=== PATIENT | female | born 1960 | race Caucasian/White ===

== ENCOUNTER → 2023-03-22 15:22 | Outpatient (REF) | payer BC, SELFPAY | LOC: WDC 15:22 | PROVIDERS: ATTENDING PHYSICIAN Internal Medicine | DX: Z12.31 Encounter for screening mammogram for malignant neoplasm of breast (principal) | CPT/HCPCS: 77063; 77067 ==

== ENCOUNTER → 2023-09-05 16:28 | Outpatient (REF) | payer BC, SELFPAY | LOC: CPAP 16:28 | PROVIDERS: ATTENDING PHYSICIAN Nurse Practitioner Family | DX: Z01.419 Encounter for gynecological examination (general) (routine) without abnormal findings (principal); Z11.51 Encounter for screening for human papillomavirus (HPV) | CPT/HCPCS: 87624; G0123 ==

== ENCOUNTER → 2023-09-18 13:12 | Outpatient (REF) | payer BC, SELFPAY | LOC: PAVMRI 13:12 | PROVIDERS: ATTENDING PHYSICIAN Orthopaedic Surgery; FAMILY PHYSICIAN Internal Medicine | DX: M25.559 Pain in unspecified hip (principal) | CPT/HCPCS: 73721 ==

== ENCOUNTER → 2023-09-20 07:11 | Outpatient (REF) | payer BC, SELFPAY ==
[2023-09-20 08:15] LABS: % Basophils 0.6 % (0-2); % Eosinophils 4.7 % (0-6); % Immature Granulocytes 0.4 % (0-0.5); % Lymphocytes 31.5 % (20.5-51.1); % Monocytes 11.7 % (1.7-9.3); % Neutrophils 51.1 % (42.2-75.2); Absolute Eosinophils 0.2 10^3/uL (0-0.7); Absolute Lymphocytes 1.6 10^3/uL (1.2-3.4); Absolute Monocytes 0.6 10^3/uL (0.1-0.6); Absolute Neutrophils 2.6 10^3/uL (1.4-6.5); Hematocrit 33.7 % (37.0-47.0); Hemoglobin 10.9 g/dL (12.0-16.0); Mean Corp Hgb Conc. 32.3 g/dL (33.0-37.0); Mean Corpuscular Hgb 25.8 pg (27.0-31.0); Mean Corpuscular Volume 79.9 fL (81.0-99.0); Mean Platelet Volume 10.1 fL (7.4-10.4); Nucleated Red Blood Cells % 0 %; Platelet Count 281 10^3/uL (130-400); Red Blood Cell Count 4.22 10^6/uL (4.20-5.40); Red Cell Dist. Width 14.3 % (11.5-14.5); White Blood Cell Count 5.2 10^3/uL (4.8-10.8)
[2023-09-20 09:01] LABS: ALT (SGPT) 16 U/L (0-35); AST (SGOT) 22 U/L (14-36); Albumin 4.1 g/dl (3.5-5.0); Alkaline Phosphatase 65 U/L (38-126); Blood Urea Nitrogen 18 mg/dl (7-17); Calcium 9.2 mg/dl (8.4-10.2); Carbon Dioxide 28 mmol/L (22-30); Chloride 107 mmol/L (98-107); Glucose 91 mg/dl (70-99); HDL Cholesterol 79 mg/dl; LDL Cholesterol, Calculated 127 mg/dl; Potassium 4.5 mmol/L (3.5-5.1); Sodium 138 mmol/L (135-145); Total Bilirubin 0.6 mg/dl (0.2-1.3); Total Cholesterol 218 mg/dl (50-199); Total Protein 6.7 g/dl (6.3-8.2); Triglyceride 60 mg/dl (10-149); Very Low Density Lipoprotein 12 mg/dl (0-30); eGFR > 60.00
[2023-09-20 09:19] LABS: TSH 2.47 uIU/ml (0.47-4.68)
[2023-09-20 09:45] LABS: Glycohemoglobin (HgbA1c) 5.7 % (4.0-5.6)
== END ==
LOC: REG 07:11
PROVIDERS: ATTENDING PHYSICIAN Internal Medicine
DX: I10 Essential (primary) hypertension (principal); R73.01 Impaired fasting glucose; E78.5 Hyperlipidemia, unspecified; Z00.00 Encounter for general adult medical examination without abnormal findings; I51.4 Myocarditis, unspecified; R53.83 Other fatigue
CPT/HCPCS: 36415; 80053; 80061; 83036; 84443; 85025

== ENCOUNTER → 2023-10-03 15:23 | Outpatient (REF) | payer BC, SELFPAY | LOC: RAD 15:23 | PROVIDERS: ATTENDING PHYSICIAN Nurse Practitioner Family | DX: N84.0 Polyp of corpus uteri (principal) | CPT/HCPCS: 76830; 76856 ==

== ENCOUNTER → 2023-10-08 07:27 | Outpatient (REF) | payer BC, SELFPAY | LOC: RAD 07:27 | PROVIDERS: ATTENDING PHYSICIAN Internal Medicine | DX: R22.1 Localized swelling, mass and lump, neck (principal) | CPT/HCPCS: 70490 ==

== ENCOUNTER 2023-10-19 16:38 | Emergency (ER) | payer BC, SELFPAY ==
[2023-10-19 16:47] VITALS: BP 144/82
[2023-10-19 16:48] VITALS: BP 144/82
[2023-10-19] MEDS: NSS 500 IV (17:08)
[2023-10-19] MEDS: ZOFRAN 4 MG IV (17:09)
--- NOTE | 2023-10-19 17:10 | ED.GENMED ---
History of Present Illness
General
Chief Complaint: Abdominal Symptoms
Source: patient
Exam Limitations: none
Time Seen by Provider: 10/19/23 16:46
Nursing documentation reviewed up to this point in time: agreed with
History of Present Illness
History of Present Illness:
63-year-old female with past medical history as documented presents to the emergency room for evaluation of epigastric pain. Patient reports onset of symptoms Saturday while on vacation�she says that she ate some shrimp and had some vague epigastric
discomfort and nausea. Symptoms continued and worsened Saturday and early Saturday morning went to ER in [facility] she had upper abdominal ultrasound was reportedly normal, EKG and troponins which were apparently unremarkable; while there she
was treated symptomatically with Toradol, Zofran and ultimately Dilaudid; she had a large episode of emesis after receiving Dilaudid and her symptoms seem to resolved after that she was discharged from the emergency room. She says that on
and Saturday symptoms returned and have worsened�she describes some vague pain in the epigastrium that radiates towards the left and into the back. It is much worse with eating. Has been having difficulty even tolerating crackers due to nausea and
vomiting. Throughout the past 5 days she also reports watery stools. Came back to the emergency room for assessment. Denies any history of prior abdominal surgeries.
Past History
Past History
ED Past Medical History: HTN, Other (Migraines, restless leg syndrome) and Other (Naila's thyroiditis, non-STEMI with clean cardiac catheterization in 2018)
ED Past Surgical History: None
Social History
Tobacco: Non-smoker
Alcohol: Occasional
Personal:
Living: with family
Employment: Employed
Family History
Family History: Negative Diabetes
Review of Systems
Review of Systems
All Other Systems: ROS reviewed and negative except as documented in HPI and ROS
Constitutional: Denies fever
Cardiac: Reports chest pain
ABD/GI: Reports abdominal pain, nausea, vomiting and diarrhea
Musculoskeletal: Reports back pain; Denies neck pain
Phy Exam
Physical Exam
Physical Exam:
General: Awake, alert, oriented x3; appears uncomfortable and anxious
Head: Normocephalic, atraumatic
Eyes: Conjunctiva normal, sclera anicteric
Throat: Airway intact, handling secretions
Neck: Trachea midline
Lungs: Clear to auscultation bilaterally, no wheezing, rales, rhonchi
Heart: Regular rate and rhythm, no murmurs, gallops, or rubs
Abd: Soft, non distended, tender to palpation epigastrium and left upper quadrant with no palpable masses
Neuro: No gross deficits
Extremities: No edema in extremities, warm and well-perfused
Scores
Heart Failure Risk
Heart Failure Risk Score: Not Applicable
Heart Score for Chest Pain Patients
STEMI patient?: Not applicable
Withdrawal Assessment of Alcohol
Withdrawal Assessment Completed?: Not applicable
Course
Orders/Labs/Results
Orders:
Orders
10/19/23 16:47
EKG [Electrocardiogram (*1)] Urgent
Reason for Study: Chest Pain
Electrocardiogram (*1) Urgent
Reason for Study: Chest Pain
EKG- Treatment ONCE
EKG- Treatment ONCE
10/19/23 16:58
0.9% Sodium Chloride 500 ml [Nss] 500 ml IV BOLUS
Ondansetron Injectable [Zofran] 4 mg IV NOW STA
10/19/23 16:59
CT Abd/pelvis W Iv Cont Urgent
Comment:
Reason For Exam: severe epigastric pain, nausea, vomiting
10/19/23 17:04
Complete Blood Count/With Diff Urgent
Comprehensive Metabolic Panel Urgent
Lipase Urgent
Magnesium Urgent
Troponin I Urgent
10/19/23 19:28
STOOL [C difficile Antigen & Toxins] Urgent
RADHA Source: Feces/Stool
Specimen Description:
Stool Culture Urgent
RADHA Source: Feces/Stool
Specimen Description:
Abnormal Lab Results
10/19/23
17:04
MCV 77.6 L fL
(81.0-99.0)
MCH 25.6 L pg
(27.0-31.0)
Absolute Lymphs (auto) 1.1 L 10^3/uL
(1.2-3.4)
Absolute Monos (auto) 0.8 H 10^3/uL
(0.1-0.6)
Lymphocytes % 19.9 L %
(20.5-51.1)
Monocytes % 13.7 H %
(1.7-9.3)
Carbon Dioxide 19 L mmol/L
(22-30)
Glucose 101 H mg/dl
(70-99)
AST 39 H U/L
(14-36)
10/19/23 17:04
10/19/23 17:04
Vital Signs
Initial and Last Documented VS:
Initial Vital Signs
Pulse Ox
99
10/19/23 16:45
Last Documented Vital Signs
Temp Pulse Resp BP Pulse Ox
36.7 C 77 15 144/82 97
10/19/23 16:48 10/19/23 17:30 10/19/23 17:30 10/19/23 16:48 10/19/23 17:15
MDM/Problems Addressed
Differential Diagnosis Includes:
PUD/gastritis, pancreatitis, cholelithiasis/cholecystitis, bowel obstruction, ACS
MDM/Problems Addressed:
63-year-old female presents for evaluation of epigastric pain ongoing x 5 days; worse with meals associate with nausea, vomiting, diarrhea. Had ER visit 3 days after symptom onset at which time she had an ultrasound and troponins that were
unremarkable. Vitals normal here, physical exam as above. EKG shows no STEMI. Place an IV check labs including a CBC and a CMP, lipase. Will check troponins. Check CT abdomen pelvis. Treat nausea and provide fluids. Offered pain control,
patient declined for now. Reassess after the above.
Labs reviewed: CBC unremarkable, CMP marginal metabolic acidosis likely from GI losses. Troponin undetectable�sufficient to rule out acute SD with symptoms for [address] shows signs consistent with colitis. Given duration of symptoms will start
on antibiotics. Stool sample sent off. Offered admission patient feels comfortable with discharge, has Zofran at home can trial Imodium. All questions answered.
*Radiology
Radiology exam reviewed: radiology read reviewed
*Pulse Oximetry
Patient hypoxic: no
*EKG
Interpreted by ED Provider?: Yes
Heart Rate: 79
Rate: normal
Rhythm: sinus
[place]: normal axis
Interval: normal interval
QRS Pattern: normal QRS
Ischemia: no ischemia
*Critical Care Note
Total Time (30-74mins, 75-104mins- exclusive of procedures): Not Applicable
Data Reviewed
Review of Other/Old Records Reveals: Labs, Records and Testing (Reviewed cardiac cath report from 2018)
Source: patient and records
ED Attending Note
-
Portions of this chart may have been created with voice recognition software.� Occasional wrong word or��sound alike� substitutions may have occurred due to the inherent limitations of voice recognition software.
Discharge Plan
Departure
Patient Disposition: Home (Routine Discharge)
Date of Disposition: 10/19/23
Time of Disposition: 19:29
Patient with high blood pressure during this ER visit?: No
Discharge Problem:
Colitis
Instructions: Diarrhea in teens and adults
Prescriptions:
New
amoxicillin-pot clavulanate 875-125 mg tablet
1 tab PO BID Qty: 14 0RF
No Action
ropinirole 2 MG tablet
2 mg PO HS
losartan 25 MG tablet
50 mg PO HS
aspirin 81 mg Tablet,Chewable
81 mg PO DAILY Qty: 0 0RF
pantoprazole 40 mg tablet,delayed release (DR/EC)
See Rx Instructions .ROUTE .COMPLEX Qty: 60 0RF
Rx Instructions:
take 1 twice daily for 2 weeks then 1 daily for 2 weeks
Referrals:
Cortney Baer MD [Family Provider] - Follow up in 5-7 days
Activity Restrictions/Additional Instructions:
Thank you for visiting the Emergency Department at [facility].
1. Please schedule a follow up appointment as directed. Call first thing tomorrow morning to make an appointment.
2. If indicated, please take your medications as instructed and indicated on discharge paperwork.
3. If any of your symptoms do not improve, or persist, or become more severe within 6-12 hours, please return to the emergency department for further care.
4. Please return to the emergency department if you develop a headache, neck pain/stiffness, fever greater than 100.4F, chest pain, shortness of breath, persistent nausea, vomiting, slurred speech, difficulty walking, numbness/tingling, weakness,
signs of infection or any other symptoms that are worrisome to you.
Please call [phone] if you have any questions.
Interventions
Interventions:
*Risk Screen - Suicide Last Done: 10/19/23 16:48
*General Assessment Last Done: 10/19/23 16:48
*Neglect/Abuse Screening Last Done: 10/19/23 16:48
ED- Fall Risk Assessment Last Done: 10/19/23 17:25
GV-Rcavix-Myvaxwfkzj Assessment Last Done: 10/19/23 17:25
Discharge Date and Time
Print Language: SLOVAK
[2023-10-19 17:13] LABS: % Basophils 0.5 % (0-2); % Eosinophils 3.5 % (0-6); % Immature Granulocytes 0.4 % (0-0.5); % Lymphocytes 19.9 % (20.5-51.1); % Monocytes 13.7 % (1.7-9.3); Absolute Eosinophils 0.2 10^3/uL (0-0.7); Absolute Lymphocytes 1.1 10^3/uL (1.2-3.4); Absolute Monocytes 0.8 10^3/uL (0.1-0.6); Absolute Neutrophils 3.5 10^3/uL (1.4-6.5); Hematocrit 38.8 % (37.0-47.0); Hemoglobin 12.8 g/dL (12.0-16.0); Mean Corpuscular Hgb 25.6 pg (27.0-31.0); Mean Corpuscular Volume 77.6 fL (81.0-99.0); Mean Platelet Volume 9.4 fL (7.4-10.4); Nucleated Red Blood Cells % 0 %; Platelet Count 274 10^3/uL (130-400); Red Cell Dist. Width 14.1 % (11.5-14.5); White Blood Cell Count 5.7 10^3/uL (4.8-10.8)
[2023-10-19 17:25] LABS: ALT (SGPT) 21 U/L (0-35); AST (SGOT) 39 U/L (14-36); Albumin 4.2 g/dl (3.5-5.0); Alkaline Phosphatase 78 U/L (38-126); Blood Urea Nitrogen 16 mg/dl (7-17); Calcium 9.1 mg/dl (8.4-10.2); Carbon Dioxide 19 mmol/L (22-30); Chloride 100 mmol/L (98-107); Estimated Creatinine Clearance 73 ml/min; Glucose 101 mg/dl (70-99); Lipase 118 U/L (23-300); Magnesium 1.8 mg/dl (1.6-2.3); Potassium 3.5 mmol/L (3.5-5.1); Sodium 136 mmol/L (135-145); Total Bilirubin 0.5 mg/dl (0.2-1.3); Total Protein 6.8 g/dl (6.3-8.2); eGFR > 60.00
[2023-10-19 17:38] LABS: Troponin I < 0.012 ng/ml
[2023-10-19 18:03] VITALS: BP 125/85
[2023-10-19 19:00] VITALS: BP 110/77
== END 2023-10-19 20:06 | disposition home or self-care (01) ==
LOC: EMR 16:38
PROVIDERS: EMERGENCY PHYSICIAN Emergency Medicine; FAMILY PHYSICIAN Internal Medicine
DX: K52.9 Noninfective gastroenteritis and colitis, unspecified (principal); R07.89 Other chest pain; M54.9 Dorsalgia, unspecified; R19.7 Diarrhea, unspecified; I10 Essential (primary) hypertension; G25.81 Restless legs syndrome; E06.3 Autoimmune thyroiditis; G43.909 Migraine, unspecified, not intractable, without status migrainosus; I25.2 Old myocardial infarction; Z79.82 Long term (current) use of aspirin; Z88.8 Allergy status to other drugs, medicaments and biological substances; Z91.018 Allergy to other foods; Z91.010 Allergy to peanuts
CPT/HCPCS: 99285; 96361; 96374; 74177; 80053; 83690; 83735; 84484; 85025; 87045; 87046; 87324; 87427; 87449; 93005; Q9967

== ENCOUNTER → 2023-10-23 10:04 | Outpatient (REF) | payer BC, SELFPAY | LOC: REG 10:04 | PROVIDERS: ATTENDING PHYSICIAN Internal Medicine Gastroenterology; FAMILY PHYSICIAN Internal Medicine | DX: R19.7 Diarrhea, unspecified (principal) | CPT/HCPCS: 82653; 83993 ==

== ENCOUNTER → 2023-10-24 08:42 | Outpatient (REF) | payer BC, SELFPAY | LOC: RAD 08:42 | PROVIDERS: ATTENDING PHYSICIAN Internal Medicine Gastroenterology; FAMILY PHYSICIAN Internal Medicine | DX: R10.13 Epigastric pain (principal) | CPT/HCPCS: 74019 ==

== ENCOUNTER → 2023-10-25 06:40 | Day surgery (SDC) | payer BC, SELFPAY | LOC: GI 06:40 | PROVIDERS: ATTENDING PHYSICIAN Internal Medicine Gastroenterology | DX: K31.89 Other diseases of stomach and duodenum (principal); K31.7 Polyp of stomach and duodenum; K29.80 Duodenitis without bleeding; K44.9 Diaphragmatic hernia without obstruction or gangrene; R12 Heartburn | CPT/HCPCS: 43239; 88305; 88342 ==

== ENCOUNTER → 2023-10-29 16:17 | Outpatient (REF) | payer BC, SELFPAY ==
[2023-11-08 16:32] LABS: HPV, High Risk Not Detected; HPV, High Risk Source Cervical
== END ==
LOC: CPAP 16:17
PROVIDERS: ATTENDING PHYSICIAN Obstetrics & Gynecology
DX: R87.615 Unsatisfactory cytologic smear of cervix (principal)
CPT/HCPCS: 87624; G0123

== ENCOUNTER → 2024-01-21 15:10 | Outpatient (REF) | payer BC, SELFPAY | LOC: MRI 3T 15:10 | PROVIDERS: ATTENDING PHYSICIAN Internal Medicine Gastroenterology; FAMILY PHYSICIAN Internal Medicine | DX: K86.89 Other specified diseases of pancreas (principal); R19.7 Diarrhea, unspecified; K65.4 Sclerosing mesenteritis | CPT/HCPCS: 74183; A9575 ==

== ENCOUNTER → 2024-05-19 15:20 | Outpatient (REF) | payer BC, SELFPAY | LOC: WDC 15:20 | PROVIDERS: ATTENDING PHYSICIAN Nurse Practitioner Family; FAMILY PHYSICIAN Internal Medicine | DX: Z12.31 Encounter for screening mammogram for malignant neoplasm of breast (principal) | CPT/HCPCS: 77063; 77067 ==

== ENCOUNTER → 2024-07-28 15:46 | Outpatient (REF) | payer BC, SELFPAY | LOC: CLAB 15:46 | PROVIDERS: ATTENDING PHYSICIAN Internal Medicine | DX: N39.0 Urinary tract infection, site not specified (principal) | CPT/HCPCS: 87086 ==

== ENCOUNTER → 2024-10-03 08:57 | Outpatient (REF) | payer BC, SELFPAY ==
[2024-10-03 09:38] LABS: Hematocrit 35.4 % (37.0-47.0); Hemoglobin 11.2 g/dL (12.0-16.0); Mean Corp Hgb Conc. 31.6 g/dL (33.0-37.0); Mean Corpuscular Volume 81.9 fL (81.0-99.0); Nucleated Red Blood Cells % 0 %; Platelet Count 263 10^3/uL (130-400); Red Cell Dist. Width 14.1 % (11.5-14.5)
[2024-10-03 10:50] LABS: ALT (SGPT) 17 U/L (0-35); AST (SGOT) 23 U/L (14-36); Albumin 4.4 g/dl (3.5-5.0); Alkaline Phosphatase 60 U/L (38-126); Blood Urea Nitrogen 19 mg/dl (7-17); Calcium 9.1 mg/dl (8.4-10.2); Carbon Dioxide 27 mmol/L (22-30); Chloride 107 mmol/L (98-107); Glucose 88 mg/dl (70-99); Potassium 4.7 mmol/L (3.5-5.1); Sodium 138 mmol/L (135-145); Total Protein 7.0 g/dl (6.3-8.2); Very Low Density Lipoprotein 12 mg/dl (0-30); eGFR > 60.00
[2024-10-03 10:58] LABS: HDL Cholesterol 91 mg/dl; LDL Cholesterol, Calculated 123 mg/dl
[2024-10-03 11:15] LABS: TSH 1.51 uIU/ml (0.47-4.68)
[2024-10-03 14:30] LABS: Glycohemoglobin (HgbA1c) 5.8 % (4.0-5.6)
== END ==
LOC: REG 08:57
PROVIDERS: ATTENDING PHYSICIAN Internal Medicine
DX: I10 Essential (primary) hypertension (principal); E78.5 Hyperlipidemia, unspecified; I51.4 Myocarditis, unspecified; R53.83 Other fatigue; R73.01 Impaired fasting glucose
CPT/HCPCS: 36415; 80053; 80061; 83036; 84443; 85025